=== PATIENT | male | born 1945 ===

== ENCOUNTER → 2025-07-03 06:26 | Outpatient (CLI) | payer OTHER, SELFPAY ==
--- NOTE | 2025-07-03 | DI.US_ITS ---
APPROVED REPORT EXAM: Comprehensive 2D, Doppler, and color-flow Echocardiogram Patient Location: Out-Patient Car Painter: Shobha Gregg RDCS (AE) Indications: Sinus bradycardia Other Information Study Quality: Adequate Conclusion Normal left ventricular wall thickness and chamber size. Ejection fraction is 60%. Wall motion is normal Normal right ventricular size and function Both atria are normal in size Aortic valve is calcified and trileaflet. There is trace aortic regurgitation. There is no hemodynamically significant aortic stenosis Mildly dilated ascending aorta 3.63 cm Wall motion Left Ventricle The left ventricle is normal size. The left ventricular systolic function is normal. The left ventricular ejection fraction is within the normal range. There is normal left ventricular wall thickness. There is normal LV segmental wall motion. There is no ventricular septal defect visualized. LVEF is 60%. Right Ventricle The right ventricle is normal size. The right ventricular systolic function is normal. Atria The left atrium size is normal. The right atrium size is normal. Atrial septal aneurysm is present. Aortic Valve Aortic valve is calcified. Aortic valve is trileaflet. No hemodynamically significant valvular aortic stenosis. Trace aortic regurgitation. Mitral Valve The mitral valve is normal in structure. No evidence of mitral valve stenosis. Trace mitral regurgitation. Tricuspid Valve The tricuspid valve is normal in structure. There is no tricuspid valve stenosis. Mild tricuspid regurgitation. Unable to assess PA pressure. Pulmonic Valve The pulmonary valve is normal in structure. There is no pulmonic valvular stenosis. Trace to mild pulmonic regurgitation. Great Vessels The aortic root is normal in size. The ascending aorta is mildly dilated. Aortic arch is not well visualized. IVC is normal in size and collapses >50% with inspiration. Pericardium There is no pericardial effusion. 2D Dimensions IVSD d PLAX 1.00 cm M: 0.6-1.2 Ao Root d 3.59 cm M: 3.1 - 3.7 LVPW d PLAX 1.00 cm M: 0.6 - 1.2 Ao Asc Diam d 3.63 cm M: 2.6 - 3.4 LVID d PLAX 5.32 cm M: 4.2 - 5.8 LVDs 3.50 cm M: 2.5 - 4.0 LV EF Teichholz 62.9 % FS 34.29 % LV EDV (Teich) 136.7 mL LV ESV (Teich) 50.8 mL M-Mode TAPSE 3.40 cm (M/F) >1.7 Auto EF LV EDV A4C 139.4 mL LV EDV A2C 195.0 mL LV EDV BP 166.0 mL LV ESV A4C 55.4 mL LV ESV A2C 78.7 mL LV ESV BP 64.5 mL LVEF(%) A4C 60.3 % LVEF(%) A2C 59.6 % LVEF(%) BP 61.1 % LV SV A4C 84.1 ml LV SV A2C 116.3 ml LV SV BP 101.5 ml LV CO A4C 3.7 L/min LV CO A2C 4.4 L/min LV CO BP 4.0 L/min HR A4C 44.06 BPM HR A2C 37.78 BPM LV EDV Index (BP) LA Volume LA Length A4C 5.5 cm LA Length A2C 5.3 cm LA Area A4C s 18.90 cm2 LA Area A2C s 22.15 cm2 LA Vol A4C A-L 54.83 mL LA Vol A2C A-L 78.11 mL LA Vol Biplane A-L 66.7 mL LA Vol/BSA A4C A-L LA Vol/BSA A2C A-L LA Vol/BSA BP A-L 31.6 mL/m2 LA Vol A4C MOD 52.1 mL LA Vol A2C MOD 72.6 mL LA Vol BP MOD 62.6 mL RA Volume RA Area A4C 13.4 cm2 RA ESV A4C (A-L) 34.6mL RA Vol/BSA A4C A-L RA Length A4C 4.4 cm RA ESV A4C (MOD) 32.4mL LV Diastology MV E' medial 0.066 (>0.07 m/s) MV E Vmax 0.61 (0.4-1.3 m/s) MV E/E' MED 9.26 (<14) MV A Vmax 0.95 (0.4-1.3 m/s) MV E' lateral 0.077 (>0.1 m/s) E/A Ratio 0.6 MV E/E' LAT 7.97 (<14) MV E' Average 0.072 m/s MV E/E'(average) 8.57 Aortic Valve AoV Vmax 2.47 m/s LVOT Vmax 1.23 m/s AoV Peak Grad 40.1 mmHg LVOT Peak Grad 6.0 mmHg AoV Area (Vmax) 1.76 cm2 LVOT VTI 0.338 m AoV VTI 0.581 m LVOT Mean Grad 2.9 mmHg AoV Mean Chris. 1.70 m/s LVOT SV 119.69 mL AoV Mean Grad 13.2 mmHg LVOT Diam s 2.10 cm AoV Area (VTI) 2.06 cm2 AV Regurg Peak Gr. 24.50 mmHg Velocity Ratio 0.50 AR Decel Cidra 1.3m/sec2 AR DT 2955 msec AR PHT 857 msec AR Vmax 3.73 m/s Mitral Valve MV DT 297 (160-240 msec) MV Vmax TIPS 0.78 m/s MV Mean Grad 0.8 (<2mmHg) MV VTI 0.335 m Pulmonary Valve PV Vmax 1.05 (0.5-1.5 m/s) RVOT Vmax 0.71 m/s PV Peak Grad 4.4 mmHg RVOT Peak Gr. 2.0 mmHg PV Mean Chris 0.71 m/s RVOT VTI 0.167 m PV Mean Grad 2.4 mmHg RVOT Mean Gr. 1.1 mmHg Tricuspid Valve RA Pressure 3.00 mmHg TV S' 0.15 m/s
== END ==
PROVIDERS: Visit Provider Chiropractor
DX: R00.1 Bradycardia, unspecified (principal); I35.0 Nonrheumatic aortic (valve) stenosis
CPT/HCPCS: 93306